=== PATIENT | male | born 1970 | race Caucasian/White ===

== ENCOUNTER 2018-03-28 07:46 | Day surgery (SDC) | payer BC, OTHER ==
[2018-03-28] MEDS ORDERED: fentaNYL 100 MCG/2 ML SDV ONE (07:58)
[2018-03-28] MEDS ORDERED: Lidocaine 0.5% 50 ML SDV ONE (07:58)
[2018-03-28] MEDS ORDERED: Midazolam 1 MG/ML 2 ML SDV ONE (07:58)
[2018-03-28] MEDS ORDERED: Propofol 200 MG/20 ML SDV ONE ×2 (07:58→09:56)
[2018-03-28] MEDS ORDERED: ceFAZolin 1 GM Vial ONE (07:58)
[2018-03-28] MEDS ORDERED: Sodium Chloride 0.9% 5 ML Syringe FLUSH PRN (08:00)
[2018-03-28] MEDS ORDERED: Lactated Ringers 1,000 ML IV SCH (08:00)
[2018-03-28] MEDS ORDERED: Bupivacaine 0.5% 30 ML SDV ONE (09:10)
[2018-03-28] MEDS ORDERED: Propofol 200 MG/20 ML SDV IV ONE (10:15)
[2018-03-28] MEDS ORDERED: Midazolam 1 MG/ML 2 ML SDV IV ONE (10:15)
[2018-03-28] MEDS ORDERED: ceFAZolin 1 GM Vial IV ONE (10:15)
[2018-03-28] MEDS ORDERED: fentaNYL 100 MCG/2 ML SDV IV ONE (10:15)
[2018-03-28] MEDS ORDERED: Bupivacaine 0.5% 10 ML SDV INFILT ONE (10:47)
--- NOTE | 2018-03-28 11:22 | PCM.OPNOTE ---
- General Post-Op/Procedure Note Date of Surgery/Procedure: 03/28/18 Operative Procedure(s): Right carpal tunnel and trigger finger repair. Anesthesia Technique: Moderate Sedation Primary Surgeon: Desiree Moss Complications: None Condition: Good Free Text/Narrative:: INFORMED CONSENT: Patient is here today for elective right carpal tunnel decompression and repair of trigger finger right middle finger.. All aspects of this procedure have been discussed with the patient. All possible complications including infection, pain, bleeding, failure of the operation to relieve the symptoms and unknown complications. Anesthetic complications were handled by anesthesia department. The patient understands fully well. Patient did not have any further questions for me at the end of my interview. The patient wishes for me to proceed. PROCEDURE: 1. Right carpal tunnel repair. #2 Repair of trigger finger of the right middle finger. The patient was kept in the supine position and the satisfactory Helen block anesthesia was administered. The Rt arm was thoroughly prepped and draped in the usual fashion. The tourniquet was placed to the right upper arm and a vertical incision was made in the palm directly distal to the distal wrist crease. The skin incision was deepened through the subcutaneous tissue, the palmar aponeurosis was incised and then we came down upon the transverse carpal ligament, which was opened along the line of the skin incision. Extreme care was taken to protect the median nerve below. Careful neurolysis was performed meticulously. Approximately 2 cc of Marcaine 0.5% was instilled into the wound and skin was closed using mattress sutures with 3.0 Nylon. Horizontal incision was made on the palm over the A1 maribell. The skin incision was deepened through the subcutaneous tissue until we came down upon the tendon sheath which was opened proximally and distally to release the trigger finger. Care was taken not to injure the tendon in any way. approximately 1 mL ofMarcaine 0.5% was placed in this area.the skin incision was closed with -0 nylon mattress sutures.The tourniquet was released. A sterile pressure dressing was applied. The patient tolerated the procedure well and was transferred to the recovery room in excellent condition. No blood loss and no complications.
== END 2018-03-28 12:25 | disposition home or self-care (01) ==
LOC: KA.SDS 07:46
PROVIDERS: ATTEND Family Medicine
DX: G56.03 Carpal tunnel syndrome, bilateral upper limbs (principal); M65.331 Trigger finger, right middle finger; L84 Corns and callosities; G25.81 Restless legs syndrome; I10 Essential (primary) hypertension
CPT/HCPCS: 26055; 64721; J0690; J2250; J2704; J3010; J3490; J7120